=== PATIENT | female | born 1980 | race African-American/Black ===

== ENCOUNTER 2022-10-18 13:11 | Emergency (ER) | payer MEDICAID, SELFPAY ==
[2022-10-18 13:29] VITALS: BP 157/93; PULSE 99; RESP 18; TEMP 36.6; O2SAT 98; BMI 49.9
--- NOTE | 2022-10-18 13:30 | ED.GENADULT ---
HPI - General Adult General Chief complaint: Wound/Laceration Stated complaint: Suture Removal Etc Time Seen by Provider: 10/18/22 14:10 Source: patient and RN notes reviewed Mode of arrival: ambulatory Limitations: no limitations History of Present Illness HPI narrative: This is a 42-year-old female presenting to the emergency department for wound check after having multiple cosmetic surgeries and [place] on October 03. Patient had a bilateral brachioplasty, back liposuction, tummy tuck, and ?fat placed into her hips?. Patient was discharged on oral antibiotics which she has since completed. She states that she needs to have sutures removed and wound drain removed. Patient denies any fevers or chills. No other complaints or concerns at this time. MD complaint: Wound check Relieving factors: none Exacerbating factors: none Associated symptoms: denies other symptoms Treatments prior to arrival: none Related Data Previous Rx's Medication Instructions Recorded amoxicillin 875 mg-potassium 1 tab PO BID 7 days #14 tabs 10/18/22 clavulanate 125 mg tablet Allergies Allergy/AdvReac Type Severity Reaction Status Date / Time No Known Allergies Allergy Verified 10/18/22 13:27 Review of Systems Review of Systems: Constitutional: No Weight loss, No Fever, No Chills ENT/Mouth: No Ear Pain, No Nasal Congestion, No Sinus Pain, No Hoarseness, No sore throat, No Rhinorrhea, No Swallowing Difficulty Cardiovascular: No Chest Pain, No SOB Respiratory: No Cough, No Sputum, No Wheezing Gastrointestinal: No Nausea, No Vomiting, No Diarrhea, No Constipation, No Abdominal pain Genitourinary: No Dysuria, No Urinary Frequency, No Hematuria, No Urinary Incontinence/retention, No Urgency, No Flank Pain Musculoskeletal: No joint pain, No Myalgias, No Joint Swelling Skin: No Skin Lesions, No rash Neuro: No Weakness, No Numbness, No Paresthesias PMFSH Social History Social History Alcohol intake: former Smoked in Last 30 Days: No Use of substances other than those prescribed or required for medical reasons: Yes Substance Use Type: Marijuana Advance Directives: No Physical Exam ED Vital Signs: Vital Signs - 24 hr 10/18/22 13:29 Temperature 98 F Pulse Rate 99 Respiratory Rate 18 Blood Pressure 157/93 H Pulse Oximetry 98 Oxygen Delivery Method Room Air BMI result Body Mass Index 49.9 Const Other: General: Awake, alert, and oriented X3. No acute distress. HEENT: Normal inspection CVS: Normal heart rate and rhythm. Pulses normal. Respiratory: No respiratory distress Skin: Bilateral arms with extensive healing surgical scars, left axilla with slight wound dehiscence with wound drain placed, yellow/green drainage expressed. No surrounding fluctuance or erythema noted. Right arm with large surgical scar extending from axilla to right AC. Full range of motion of bilateral arms and elbows. Well-healed surgical incision with 1 suture placed to bilateral chest inferior to bilateral breasts. Bialteral posterior thighs with well healed surgical incision with suture placed. 1cm open wound with drain placed to the gluteal cleft, no fluctance, No active drainage or discharge. 3 Well healed surgical incision with sutures placed to back. Extremities: Normal to inspection. Neuro: Oriented X 3. No motor deficit. No sensory deficit. Course Course Course Narrative: This is an RME: Additional HPI, ROS, PE not included below will be deferred to primary provider. Patient is a 42-year-old female presenting for suture removal as well as suture placement after having liposuction in [place] on 10/03. States she does not have a surgeon here to follow up with. Reports pain is as to be expected. Denies any fevers. States BP has been mildly elevated but was told to expect that. Ok to go to [facility] for evaluation and potention suture removal. Medical Decision Making Medical Decision Making [facility] Narrative: 42-year-old female presenting to the emergency department for wound check and suture removal status post multiple cosmetic surgeries performed in [place] in October 03. Suture removal performed on sutures below bilateral breasts, 3 on back, and to on posterior thighs. No wound dehiscence or drainage from these areas. Left arm with wound dehiscence and drainage noted from the axilla, concern for underlying infection, no surrounding erythema or edema. No warmth or fevers. Discussed case with surgery for outpatient follow-up given patient's surgery was performed in [place] however we do not offer cosmetic surgery followups in this hospital. Patient given good wound care instructions, discharged on antibiotics, educated the importance of keeping close eye on these wounds. Patient understands and agrees with plan. Differential Diagnosis Differential Diagnoses: The differential diagnosis associated with the presentation includes Cellulitis, wound dehiscence, seroma Discharge Plan Discharge Clinical Impression: Visit for suture removal, Visit for wound check Patient Disposition: Home, Self-Care Instructions: Stitches Removal (ED) Additional Instructions: Please continue following all postoperative care provided by your surgeon. It is advised to follow-up with Plastic surgery for further treatment and follow-up. Call to make an appointment. Take prescribed antibiotic as directed. Finish the entire course. Watch for any worsening signs of infection including but not limited to, fevers, increased drainage. [facility] [address] [place] [address],?[id number] ?[phone] Prescriptions: New amoxicillin-pot clavulanate 875-125 mg tablet 1 tab PO BID 7 Days Qty: 14 0RF Referrals: [facility] Wound Care Management [Provider Group] (plastic surgery in [place]) Interventions: ED Discharge Assessment Last Done: 10/18/22 17:09 Discharge Date/Time: 10/18/22 17:10
--- NOTE | 2022-10-18 14:36 | PC.NURSE ---
pt reports to [facility] for suture removal post liposuction surgery in [place]. Pt also reports that they need a drain removed from their lower back and a suture to be placed. Arm lift incision on left arm appears open in area under axilla.
== END 2022-10-18 17:10 | disposition home or self-care (01) ==
PROVIDERS: Emergency Provider Emergency Medicine; PCP Internal Medicine
DX: Z48.02 Encounter for removal of sutures (principal); Z48.00 Encounter for change or removal of nonsurgical wound dressing
CPT/HCPCS: 99283

== ENCOUNTER 2022-11-03 08:02 | Outpatient (RCR) | payer MEDICAID, SELFPAY | END 2022-12-16 10:33 | disposition home or self-care (01) | LOC: HO.WCC 08:02 | PROVIDERS: PCP Internal Medicine; Visit Provider Surgery | DX: T81.31XD Disruption of external operation (surgical) wound, not elsewhere classified, subsequent encounter (principal); T14.8XXD Other injury of unspecified body region, subsequent encounter; Z79.01 Long term (current) use of anticoagulants; Z79.899 Other long term (current) drug therapy | CPT/HCPCS: 11042; 99212 ==

== ENCOUNTER 2023-11-08 09:01 | Outpatient (REF) | payer OTHER, SELFPAY ==
[2023-11-08 11:01] LABS: MANUAL DIFF FLAG NO
[2023-11-08 12:20] LABS: Basophils Absolute Auto 0.1 X10*3/uL (0.0-0.2); Basophils Percent Auto 0.9 % (0-2); Eosinophils Absolute Auto 0.3 X10*3/uL (0.0-0.4); Eosinophils Percent Auto 5.2 % (0-4); Hematocrit 33.9 % (37.0-47.0); Hemoglobin 9.8 g/dl (12.0-16.0); Imm Gran Abs Auto 0.01 X10*3/uL (0.00-0.03); Imm Gran Pct Auto 0.2 % (0.0-0.4); Lymphocytes Absolute Auto 1.3 X10*3/uL (1.2-4.9); Lymphocytes Percent Auto 22.6 % (20-40); Mean Corpuscular HGB Conc 28.9 g/dl (31.0-35.0); Mean Corpuscular Hemoglobin 21.1 pg (27.0-33.0); Mean Corpuscular Volume 72.9 fL (80.0-98.0); Mean Platelet Volume 9.2 fL (9.4-12.3); Monocytes Absolute Auto 0.2 X10*3/uL (0.1-1.2); Neutrophils Absolute Auto 3.9 x10*3/uL (2.0-8.3); Neutrophils Percent Auto 68.1 % (45-73); Platelet Count 486 X10*3/uL (160-400); Red Blood Count 4.65 X10*6/uL (4.20-5.50); Red Cell Distribution Width 19.9 % (11.0-16.0); White Blood Count 5.8 X10*3/uL (4.8-10.8)
[2023-11-08 12:58] LABS: Alanine Aminotransferase 6 U/L (0-31); Albumin Level 3.6 g/dL (3.5-5.0); Alkaline Phosphatase 104 U/L (39-117); Anion Gap 14 (12-20); Aspartate Amino Transferase 10 U/L (5-31); Bilirubin Total 0.4 mg/dL (0.0-1.0); Blood Urea Nitrogen 10 mg/dL (9-16); Calcium 9.6 mg/dL (8.4-10.2); Carbon Dioxide 24 mmol/L (22-29); Chloride 107 mmol/L (96-108); Estimated Glomerular Filt Rate > 60; Glucose Random 86 mg/dL (60-115); Potassium 3.8 mmol/L (3.3-5.1); Sodium 141 mmol/L (135-145); Total Protein 7.5 g/dL (6.5-8.0)
[2023-11-10 13:59] LABS: Transglutaminase Ab IgG <1.0 U/mL; Transglutaminase IgA <1.0 U/mL
== END 2023-11-08 09:02 | disposition home or self-care (01) ==
LOC: HO.LAB 09:01
PROVIDERS: PCP Internal Medicine; Visit Provider Nurse Practitioner
DX: R10.10 Upper abdominal pain, unspecified (principal); R68.81 Early satiety; Z91.09 Other allergy status, other than to drugs and biological substances
CPT/HCPCS: 36415; 80053; 85025; 86003; 86364

== ENCOUNTER 2023-11-08 09:01 | Outpatient (AMB) | payer OTHER, SELFPAY ==
--- NOTE | 2023-11-08 09:09 | A.OFFVIS_ITS ---
Vital Signs 3 11/08/23 09:11 Height 5 ft 5 in Weight 268 lb 15.423 oz BMI 44.8 BP 115/57 L Blood Pressure Location Lt brachial Position Sitting Pulse 73 Intake Visit Reasons: Abdominal pain Intake Note: Allie presents in the office as a new patient for abdominal pains. CC: She states that she has pains in her stomach. She was in the ED last year. She states that she has times where she is starving or she is very full - there is no inbetween. She does not get the urge to have a BM she just gets nausea and this has been ever since she her her c section. She deals with constipation - When there is a BM it is right at her rectum - all the time. She denies any blood but she does get mucus when she has a BM. She states that most of the time is is hard stools but not always the case. Reception Specialist Required: No Allergies pollen extracts Allergy (Unknown, Verified 11/08/23 09:12) Unknown ragweed pollen Allergy (Unknown, Verified 11/08/23 09:12) Unknown tree and shrub pollen Allergy (Unknown, Verified 11/08/23 09:12) Unknown vancomycin Adverse Reaction (Unknown, Verified 11/08/23 09:12) Headache HPI HPI Abdominal pain: Details: 43-year-old female here for initial evaluation of abdominal pain. She is referred by [facility] in [place]. 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 It expanded and she had multiple I&D's and then she developed a severe infection that requited IV abx. After this her stomach was rumbling all the time' and she had trouble eating. She then had sepsis. This was in 10/2022 and labor Day 2022 emergency surgery at [facility]. She vacillates between being very hungry or very full. She has had CIC since her c section. She will have bad cramping and nausea when she needs to move her bowels, she does not have the rectal urge. She lost weight with the tummy tuck and then she was briefly on Ozempic but this really worsened the sx. FHX of stomach cancer paternal aunt, she is allergic to avocados, bananas, She has trouble with mouth itching with broccoli. No formal allergy food testing. FHX maternal grandmother sarcoid, stoke, HTN, cholesterol. diabetes mother side extended. We will start with food allergy testing and general blood testing. ROV 2 weeks. to sofia lisa [facility] Medical History DVT (deep vein thrombosis) in Pulmonary embolus Surgical History Hx of colonoscopy History of esophagogastroduodenoscopy (EGD) History of section S/P brachioplasty H/O abdominoplasty H/O meniscectomy of right knee Family History Maternal Grandfather Cardiomyopathy Malignant neoplasm of lung Son Pherf-Sfjiejfid-Lkatp (WPW) pattern Father FH: prostate cancer Paternal Aunt Malignant tumor of breast Brother Schizophrenia Social History Household Members: Children Alcohol intake: former Patient Tobacco Use Status: Never used Tobacco Substance Use Type: Marijuana Review of Systems Const Denies fatigue, Denies fever(s), Denies night sweats, Denies poor appetite and Reports weight loss Eyes Details: glasses Reports requires corrective lenses ENT Reports Normal hearing present, Denies dental pain, Denies dysphagia, Denies hearing loss, Denies mouth pain, Denies odynophagia, Denies throat swelling, Denies tongue swelling and Reports other (Dentition adequate) Card Reports no additional complaints Resp Reports no additional complaints GI Details: Reports abdominal pain, Denies melena, Reports bloating, Denies hematochezia, Reports constipation, Denies GI cramping, Denies dysphagia, Denies excessive flatus, Reports early satiety, Denies heartburn, Denies diarrhea, Denies nausea, Denies odynophagia, Denies vomiting and Denies hematemesis Musc Details: Knee pain Reports arthralgias and Reports joint swelling Skin/Breast Denies pruritus, Denies lesions, Denies rash and Denies jaundice Neuro Reports Normal hearing present and Denies Abnormal speech present Endo Denies fatigue Aller/Immun Denies throat swelling and Denies tongue swelling Physical Exam Vital Signs: Last Vital Signs Pulse 73 11/08/23 09:11 BP 115/57 L 11/08/23 09:11 BMI result Body Mass Index 44.8 Const General: cooperative, no acute distress, well developed and well groomed Nutritional Appearance: well nourished and obese morbidly obese Orientation/consciousness: oriented to person, oriented to place and oriented to time Limitations: No language barrier HEENT Head: Yes normocephalic and Yes atraumatic Eyes General: appearance normal, both eyes and all related structures Pupils: Equal, round and reactive pupils present Neck Neck: Yes normal visual inspection and Yes no lymphadenopathy Thyroid: Thyroid normal Resp Effort & Inspection: normal respiratory effort and able to speak in complete sentences Auscultation: clear to auscultation bilaterally Cardio Rate: regular rate Rhythm: regular rhythm Heart sounds: Normal, physiologic split S2 sound present Peripheral pulses: radial pulses present and posterior tibial pulses present GI Inspection: Yes distended, No Abdominal panniculus present, Yes obesity, Yes scar and Yes striae Palpation (GI): Soft to palpation, nontender, no guarding, not rigid and No hepatosplenomegaly present Percussion: Yes normal to percussion Auscultation: normal bowel sounds Rectal Exam - Female: deferred Abdomen image: 2 1. surgical scars 2. Skin General skin exam: no rashes or lesions noted, turgor normal, skin not dry, no jaundice, No spider nevi and no striae Rashes: no rashes Nails: normal Neuro General: oriented to person, oriented to place and oriented to time Cranial nerves: Yes Equal, round and reactive pupils present and Yes Normal hearing present Speech: No Abnormal speech present Extrem Other: knee brace General: Yes normal to inspection, No clubbing, No cyanosis and No edema Shoulder/upper arm images: 2 1. surgical scars 2. Psych Appearance: grossly normal and well kempt Mental Status: mental status grossly normal Speech and movement: Normal speech and movement present Affect: normal affect Attitude: cooperative Thought process: Normal thought process present and not confabulating Thought content: Normal thought content present Insight: Good insight present (Psych) Judgement: Good judgement present (Psych) Assessment & Plan Assessment & Plan (1) Upper abdominal pain: Code(s): R10.10 - Upper abdominal pain, unspecified Category: Medical (2) Early satiety: Code(s): R68.81 - Early satiety Category: Medical Plan Onset last summer she had a tummy tuck and a seroma. It expanded and she had multiple I&D's and then she developed a severe infection that requited IV abx. After this her stomach was rumbling all the time' and she had trouble eating. She then had sepsis. This was in 10/2022 and labor Day 2022 emergency surgery at [facility]. She vacillates between being very hungry or very full. She has had CIC since her c section. She will have bad cramping and nausea when she needs to move her bowels, she does not have the rectal urge. She lost weight with the tummy tuck and then she was briefly on Ozempic but this really worsened the sx. FHX of stomach cancer paternal aunt, she is allergic to avocados, bananas, She has trouble with mouth itching with broccoli. No formal allergy food testing. FHX maternal grandmother sarcoid, stoke, HTN, cholesterol. diabetes mother side extended. We will start with food allergy testing and general blood testing. ROV 2 weeks. to sofia al latha Orders: Orders 2 Rast Allergen Today R10.10 - Upper abdominal pain, unspecified, R68.81 - Early satiety US abdomen complete Today R10.10 - Upper abdominal pain, unspecified, R68.81 - Early satiety Complete Blood Count Auto Diff Today R10.10 - Upper abdominal pain, unspecified, R68.81 - Early satiety Comprehensive Met. Panel Today R10.10 - Upper abdominal pain, unspecified, R68.81 - Early satiety H Pylori Breath Test Today R10.10 - Upper abdominal pain, unspecified, R68.81 - Early satiety Transglutaminase IgA Today R10.10 - Upper abdominal pain, unspecified, R68.81 - Early satiety Transglutaminase Ab IgG Today R10.10 - Upper abdominal pain, unspecified, R68.81 - Early satiety NM gastric emptying study Today R10.10 - Upper abdominal pain, unspecified, R68.81 - Early satiety Medications: New 2 sennosides (Senna Laxative) 17.2 mg (2 x 8.6 mg) PO BEDTIME 60 tabs 3RF Coding Level of Care Code New Pt Level 3 (56076) Diagnoses Upper abdominal pain R10.10 Early satiety R68.81
[2023-11-08 09:11] VITALS: BP 115/57; PULSE 73; BMI 44.8
== END 2023-11-08 10:15 | disposition home or self-care (01) ==
PROVIDERS: PCP Internal Medicine; Visit Provider Nurse Practitioner
DX: R10.10 Upper abdominal pain, unspecified (principal); R68.81 Early satiety
CPT/HCPCS: 99203

== ENCOUNTER 2023-11-28 07:59 | Outpatient (REF) | payer OTHER, SELFPAY ==
--- NOTE | ~2023-11-28 | US_ITS ---
EXAMINATION: US ABDOMEN COMPLETE CLINICAL INFORMATION: Upper abdominal pain, unspecified. COMPARISON: None available. TECHNIQUE: Real-time imaging of the abdominal viscera. Limited visualization due to bowel gas. FINDINGS: PANCREAS: Limited visualization of pancreatic tail and head. Imaged portion of pancreatic body is unremarkable. ABDOMINAL AORTA: Within normal limits in caliber. INFERIOR VENA CAVA: Visualized portions are normal. LIVER: Borderline hepatomegaly, 15.1 cm. Right hepatic parenchymal heterogeneity and echogenicity could be associated with hepatocellular disease/hepatic steatosis and substantially limits visualization. Correlation with liver function tests and clinical exam recommended to determine further management. A 0.7 cm right hepatic echogenic lesion, possibly a hemangioma. GALLBLADDER: No gallstones. No gallbladder wall thickening. COMMON BILE DUCT: Normal in caliber measuring 0.3 cm in diameter. RIGHT KIDNEY: No hydronephrosis. No renal calculi. Limited visualization. The kidney measures 10.9 cm in maximum dimension. LEFT KIDNEY: No hydronephrosis. No renal calculi. Limited visualization. The kidney measures 10.2 cm in maximum dimension. SPLEEN: Normal. The spleen measures 9.9 cm in maximum dimension. FREE FLUID: None. US/US abdomen complete IMPRESSION: 1. Borderline hepatomegaly, 15.1 cm. Right hepatic parenchymal heterogeneity and echogenicity could be associated with hepatocellular disease/hepatic steatosis and substantially limits visualization. Correlation with liver function tests and clinical exam recommended to determine further management. 2. A 0.7 cm right hepatic echogenic lesion, possibly a hemangioma.
== END 2023-11-28 08:00 | disposition home or self-care (01) ==
LOC: HO.US 07:59
PROVIDERS: PCP Internal Medicine; Visit Provider Nurse Practitioner
DX: R10.10 Upper abdominal pain, unspecified (principal); R68.81 Early satiety
CPT/HCPCS: 76700

== ENCOUNTER 2023-12-27 15:57 | Outpatient (AMB) | payer OTHER, MEDICAID, SELFPAY ==
--- NOTE | 2023-12-27 15:05 | A.OFFVIS_ITS ---
Intake Visit Reasons: 2 week follow up r/s 11/22 Intake Note: Allie presents in the office as a 2 week follow up. CC: Director Of Patient Care Required: No Allergies pollen extracts Allergy (Unknown, Verified 12/27/23 15:13) Unknown ragweed pollen Allergy (Unknown, Verified 12/27/23 15:13) Unknown tree and shrub pollen Allergy (Unknown, Verified 12/27/23 15:13) Unknown vancomycin Adverse Reaction (Unknown, Verified 12/27/23 15:13) Headache PFSH Medical History DVT (deep vein thrombosis) in Pulmonary embolus Surgical History Hx of colonoscopy History of esophagogastroduodenoscopy (EGD) History of section S/P brachioplasty H/O abdominoplasty H/O meniscectomy of right knee Family History Maternal Grandfather Cardiomyopathy Malignant neoplasm of lung Son Quvhh-Ndyjvwzuy-Pkggp (WPW) pattern Father FH: prostate cancer Paternal Aunt Malignant tumor of breast Brother Schizophrenia Social History Household Members: Children Alcohol intake: former Patient Tobacco Use Status: Never used Tobacco Substance Use Type: Marijuana Coding
--- NOTE | 2023-12-27 16:08 | MHC.OFFVIS ---
Vital Signs 12/27/23 16:11 Height 5 ft 5 in Weight 283 lb BMI 47.1 BP 114/59 L Blood Pressure Location Lt brachial Position Sitting Pulse 85 Intake Visit Reasons: 2 week follow up r/s 11/22 Intake Note: Patient follow up for early satiety Patient cc: early satiety or always hungry, soft/sticky BM and same symptoms as the last visit. Recyclable Materials Collector Required: No Accompanied by: Self / Same As Patient Allergies pollen extracts Allergy (Unknown, Verified 12/27/23 16:07) Unknown ragweed pollen Allergy (Unknown, Verified 12/27/23 16:07) Unknown tree and shrub pollen Allergy (Unknown, Verified 12/27/23 16:07) Unknown vancomycin Adverse Reaction (Unknown, Verified 12/27/23 16:07) Headache HPI HPI 2 week follow up r/s 11/22: Details: Assessment & Plan (1) Upper abdominal pain: Code(s): R10.10 - Upper abdominal pain, unspecified Category: Medical (2) Early satiety: Code(s): R68.81 - Early satiety Category: Medical Plan Onset last summer she had a tummy tuck and a seroma. It expanded and she had multiple I&D's and then she developed a severe infection that requited IV abx. After this her stomach was rumbling all the time' and she had trouble eating. She then had sepsis. This was in 10/2022 and labor Day 2022 emergency surgery at [facility]. She vacillates between being very hungry or very full. She has had CIC since her c section. She will have bad cramping and nausea when she needs to move her bowels, she does not have the rectal urge. She lost weight with the tummy tuck and then she was briefly on Ozempic but this really worsened the sx. FHX of stomach cancer paternal aunt, she is allergic to avocados, bananas, She has trouble with mouth itching with broccoli. No formal allergy food testing. FHX maternal grandmother sarcoid, stoke, HTN, cholesterol. diabetes mother side extended. We will start with food allergy testing and general blood testing. ROV 2 weeks. to ev al senna Orders: Orders Rast Allergen Today R10.10 - Upper abdominal pain, unspecified, R68.81 - Early satiety US abdomen complete Today R10.10 - Upper abdominal pain, unspecified, R68.81 - Early satiety Complete Blood Count Auto Diff Today R10.10 - Upper abdominal pain, unspecified, R68.81 - Early satiety Comprehensive Met. Panel Today R10.10 - Upper abdominal pain, unspecified, R68.81 - Early satiety H Pylori Breath Test Today R10.10 - Upper abdominal pain, unspecified, R68.81 - Early satiety Transglutaminase IgA Today R10.10 - Upper abdominal pain, unspecified, R68.81 - Early satiety Transglutaminase Ab IgG Today R10.10 - Upper abdominal pain, unspecified, R68.81 - Early satiety NM gastric emptying study Today R10.10 - Upper abdominal pain, unspecified, R68.81 - Early satiety Medications: New sennosides (Senna Laxative) 17.2 mg (2 x 8.6 mg) PO BEDTIME 60 tabs 3RF LABS; Laboratory Tests 11/08/23 10:58 WBC 5.8 Hgb 9.8 L Hct 33.9 L MCV 72.9 L MCH 21.1 L MCHC 28.9 L Plt Count 486 H Estimated GFR > 60 Total Bilirubin 0.4 AST 10 ALT 6 Tiss Transglutamin IgG <1.0 Tiss Transglutamin IgA <1.0 RAST panel shows that she has allergies to peanuts, wheat, cow's milk, soy beans, shrimp, scallops, sesame seeds, Yanely nut, and all almond GES US ABD 12/04/23 FINDINGS: PANCREAS: Limited visualization of pancreatic tail and head. Imaged portion of pancreatic body is unremarkable. ABDOMINAL AORTA: Within normal limits in caliber. INFERIOR VENA CAVA: Visualized portions are normal. LIVER: Borderline hepatomegaly, 15.1 cm. Right hepatic parenchymal heterogeneity and echogenicity could be associated with hepatocellular disease/hepatic steatosis and substantially limits visualization. Correlation with liver function tests and clinical exam recommended to determine further management. A 0.7 cm right hepatic echogenic lesion, possibly a hemangioma. GALLBLADDER: No gallstones. No gallbladder wall thickening. COMMON BILE DUCT: Normal in caliber measuring 0.3 cm in diameter. RIGHT KIDNEY: No hydronephrosis. No renal calculi. Limited visualization. The kidney measures 10.9 cm in maximum dimension. LEFT KIDNEY: No hydronephrosis. No renal calculi. Limited visualization. The kidney measures 10.2 cm in maximum dimension. SPLEEN: Normal. The spleen measures 9.9 cm in maximum dimension. FREE FLUID: None. US/US abdomen complete IMPRESSION: 1. Borderline hepatomegaly, 15.1 cm. Right hepatic parenchymal heterogeneity and echogenicity could be associated with hepatocellular disease/hepatic steatosis and substantially limits visualization. Correlation with liver function tests and clinical exam recommended to determine further management. 2. A 0.7 cm right hepatic echogenic lesion, possibly a hemangioma. TODAYS VISIT I give her the extensive list of food allergies. Now I think she needs to work on eliminating these from her diet before we consider any further medication interventions or testing. She understands and will work on this and see how she is doing in a few weeks.RAST panel shows that she has allergies to peanuts, wheat, cow's milk, soy beans, shrimp, scallops, sesame seeds, Yanely nut, and almond. ROV 6 weeks. [facility] Medical History DVT (deep vein thrombosis) in Pulmonary embolus Surgical History Hx of colonoscopy History of esophagogastroduodenoscopy (EGD) History of section S/P brachioplasty H/O abdominoplasty H/O meniscectomy of right knee Family History Maternal Grandfather Cardiomyopathy Malignant neoplasm of lung Son Pidiv-Hnovgujqz-Vgjmi (WPW) pattern Father FH: prostate cancer Paternal Aunt Malignant tumor of breast Brother Schizophrenia Social History Household Members: Children Alcohol intake: former Patient Tobacco Use Status: Never used Tobacco Substance Use Type: Marijuana Review of Systems Const Denies fatigue, Denies fever(s), Denies night sweats, Denies poor appetite and Denies weight loss Eyes Details: glasses Reports requires corrective lenses ENT Reports Normal hearing present, Denies dental pain, Denies dysphagia, Denies hearing loss, Denies mouth pain, Denies odynophagia, Denies throat swelling, Denies tongue swelling and Reports other (Dentition adequate) Card Reports no additional complaints Resp Reports no additional complaints GI Details: Reports abdominal pain, Denies melena, Reports bloating, Denies hematochezia, Denies constipation, Denies GI cramping, Denies dysphagia, Denies excessive flatus, Denies early satiety, Denies heartburn, Denies diarrhea, Denies nausea, Denies odynophagia, Denies vomiting and Denies hematemesis Skin/Breast Denies pruritus, Denies lesions, Denies rash and Denies jaundice Neuro Reports Normal hearing present and Denies Abnormal speech present Endo Denies fatigue Aller/Immun Denies throat swelling and Denies tongue swelling Physical Exam Vital Signs: Last Vital Signs Pulse 85 12/27/23 16:11 BP 114/59 L 12/27/23 16:11 BMI result Body Mass Index 47.1 Const General: cooperative, no acute distress, well developed and well groomed Nutritional Appearance: well nourished and obese morbidly obese Orientation/consciousness: oriented to person, oriented to place and oriented to time Limitations: No language barrier HEENT Head: Yes normocephalic and Yes atraumatic Eyes General: appearance normal, both eyes and all related structures Pupils: Equal, round and reactive pupils present Neck Neck: Yes normal visual inspection and Yes no lymphadenopathy Thyroid: Thyroid normal Resp Effort & Inspection: normal respiratory effort and able to speak in complete sentences Auscultation: clear to auscultation bilaterally Cardio Rate: regular rate Rhythm: regular rhythm Heart sounds: Normal, physiologic split S2 sound present Peripheral pulses: radial pulses present and posterior tibial pulses present GI Inspection: No distended, Yes Abdominal panniculus present and Yes obesity Palpation (GI): Soft to palpation, nontender, no guarding, not rigid and No hepatosplenomegaly present Percussion: Yes normal to percussion Auscultation: normal bowel sounds Rectal Exam - Female: deferred Skin General skin exam: no rashes or lesions noted, turgor normal, skin not dry, no jaundice, No spider nevi and no striae Rashes: no rashes Nails: normal Neuro General: oriented to person, oriented to place and oriented to time Cranial nerves: Yes Equal, round and reactive pupils present and Yes Normal hearing present Speech: No Abnormal speech present Extrem General: Yes normal to inspection, No clubbing, No cyanosis and No edema Psych Appearance: grossly normal and well kempt Mental Status: mental status grossly normal Speech and movement: Normal speech and movement present Affect: normal affect Attitude: cooperative Thought process: Normal thought process present and not confabulating Thought content: Normal thought content present Insight: Good insight present (Psych) Judgement: Good judgement present (Psych) Assessment & Plan Assessment & Plan (1) Multiple food allergies: Comment: peanuts, wheat, cow's milk, soy beans, shrimp, scallops, sesame seeds, Yanely nut, and almond Code(s): Z91.018 - Allergy to other foods Category: Medical (2) Upper abdominal pain: Code(s): R10.10 - Upper abdominal pain, unspecified Category: Medical Plan I give her the extensive list of food allergies. Now I think she needs to work on eliminating these from her diet before we consider any further medication interventions or testing. She understands and will work on this and see how she is doing in a few weeks.RAST panel shows that she has allergies to peanuts, wheat, cow's milk, soy beans, shrimp, scallops, sesame seeds, Yanely nut, and almond. ROV 6 weeks. Medications: On Hold sennosides (Senna Laxative) Hold Comment: Doctor's Order 17.2 mg (2 x 8.6 mg) PO BEDTIME 60 tabs 3RF Coding Level of Care Code Est Pt Level 3 (47829) Diagnoses Multiple food allergies Z91.018 Upper abdominal pain R10.10
[2023-12-27 16:11] VITALS: BP 114/59; PULSE 85; BMI 47.1
== END 2023-12-27 16:44 | disposition home or self-care (01) ==
PROVIDERS: PCP Internal Medicine; Visit Provider Nurse Practitioner
DX: Z91.018 Allergy to other foods (principal); R10.10 Upper abdominal pain, unspecified
CPT/HCPCS: 99213

== ENCOUNTER → 2023-12-27 15:57 | Outpatient (BNVA) | payer OTHER, SELFPAY | PROVIDERS: PCP Internal Medicine; Visit Provider Nurse Practitioner ==

== ENCOUNTER → 2024-01-31 07:32 | Outpatient (REF) | payer OTHER, MEDICAID, SELFPAY ==
--- NOTE | ~2024-01-31 | NM_ITS ---
EXAMINATION: RADIONUCLIDE SOLID FOOD GASTRIC EMPTYING 4-HOUR STUDY CLINICAL INFORMATION: Upper abdominal pain, unspecified. COMPARISON: No previous gastric emptying study is available for comparison. TECHNIQUE: A standard meal consisting of 4 oz of Egg Beaters brand tagged with 120 microcuries Tc-99m Sulfur Colloid, 8 oz water and 2 slices of toast with jelly was administered orally to the patient. Images were obtained using a dual head gamma camera in the anterior and posterior projections over of the stomach immediately post ingestion and at hourly intervals up to 3 hours post ingestion. Images were not obtained at 4 hours due to the minimal retention at 3 hours. The anterior and posterior counts at each time interval were averaged using the geometric mean and expressed as percentage of the immediate post ingestion counts. FINDINGS: There is good visualization of activity in the stomach immediately post ingestion. As the study progresses, there is good clearance of activity from the stomach and visualization of progressively increasing small bowel activity. By the end of the study, there is almost no retention noted in the stomach. Retention in the stomach at each time interval was: 1 hour 58% (normal 37%-90%) 2 hours 22% (normal 30%-60%) 3 hours 0% 4 hours (Not Obtained) (normal 0%-10%) NM/NM gastric emptying study IMPRESSION: Normal solid food gastric emptying study. Gastric emptying study grading per JNMT Consensus Recommendations in 2008: https://tech.snmjournals.org/content/36/44 Grade 1 (mild retention): 11-20% at 4 hours Grade 2 (moderate retention): 21-35% at 4 hours Grade 3 (severe retention): 36-50% at 4 hours Grade 4 (very severe retention): >50% retention at 4 hours Electronically signed by: Jeffrey Murdock MD 02/08/2024 03:43 PM EDT
== END ==
LOC: HO.NUCMED 07:32
PROVIDERS: PCP Internal Medicine; Visit Provider Nurse Practitioner
DX: R10.10 Upper abdominal pain, unspecified (principal); R68.81 Early satiety
CPT/HCPCS: 78264; A9541

== ENCOUNTER 2024-02-09 16:33 | Outpatient (AMB) | payer OTHER, SELFPAY ==
--- NOTE | 2024-02-09 16:36 | A.OFFVIS_ITS ---
Vital Signs 02/09/24 16:38 Height 5 ft 5 in Weight 275 lb 9.245 oz BMI 45.9 BP 126/59 L Blood Pressure Location Rt brachial Position Sitting Pulse 92 Intake Visit Reasons: 6 weeks f/u Intake Note: Alile presents to in office follow up of abd pain. CC: Patient reports she is doing the same. Facility Supervisor Required: No Accompanied by: Self / Same As Patient Allergies pollen extracts Allergy (Unknown, Verified 02/09/24 16:44) Unknown ragweed pollen Allergy (Unknown, Verified 02/09/24 16:44) Unknown tree and shrub pollen Allergy (Unknown, Verified 02/09/24 16:44) Unknown vancomycin Adverse Reaction (Unknown, Verified 02/09/24 16:44) Headache HPI HPI 6 weeks f/u: Details: Assessment & Plan (1) Multiple food allergies: Comment: peanuts, wheat, cow's milk, soy beans, shrimp, scallops, sesame seeds, Yanely nut, and almond Code(s): Z91.018 - Allergy to other foods Category: Medical (2) Upper abdominal pain: Code(s): R10.10 - Upper abdominal pain, unspecified Category: Medical Plan I give her the extensive list of food allergies. Now I think she needs to work on eliminating these from her diet before we consider any further medication interventions or testing. She understands and will work on this and see how she is doing in a few weeks.RAST panel shows that she has allergies to peanuts, wheat, cow's milk, soy beans, shrimp, scallops, sesame seeds, Yanely nut, and almond. ROV 6 weeks. Medications: On Hold sennosides (Senna Laxative) Hold Comment: Doctor's Order 17.2 mg (2 x 8.6 mg) PO BEDTIME 60 tabs 3RF GES IMPRESSION: Normal solid food gastric emptying study. TODAY'S VISIT SHe finds it VERY difficult to find things to eat. I'm not surprised, since there are many types. We discuss referral to an inspector metal fabricating, and we will do this. While avoidance of allergies is advised, I don't know if there is an desensitization therapy. There is a maub used for this that we could consider. She will get hungry very quickly and then if she does not eat she will become nauseated. Her loose stools and cramping has improved. her early satiety is still a problem. Will start famotidine and refer to inspector metal fabricating. ROV 6 weeks. PFSH Medical History DVT (deep vein thrombosis) in Pulmonary embolus Surgical History Hx of colonoscopy History of esophagogastroduodenoscopy (EGD) History of section S/P brachioplasty H/O abdominoplasty H/O meniscectomy of right knee Family History Maternal Grandfather Cardiomyopathy Malignant neoplasm of lung Son Loxbb-Hkxmirrhi-Kdgzq (WPW) pattern Father FH: prostate cancer Paternal Aunt Malignant tumor of breast Brother Schizophrenia Social History Household Members: Children Alcohol intake: former Patient Tobacco Use Status: Never used Tobacco Substance Use Type: Marijuana Review of Systems Const Denies fatigue, Denies fever(s), Denies night sweats, Reports poor appetite and Denies weight loss Eyes Details: glasses Reports requires corrective lenses ENT Reports Normal hearing present, Denies dental pain, Denies dysphagia, Denies hearing loss, Denies mouth pain, Denies odynophagia, Denies throat swelling, Denies tongue swelling and Reports other (Dentition adequate) Card Reports chest pain Resp Reports no additional complaints GI Details: Denies abdominal pain, Denies melena, Denies bloating, Denies hematochezia, Denies constipation, Denies GI cramping, Denies dysphagia, Denies excessive flatus, Reports early satiety, Denies heartburn, Denies diarrhea, Reports nausea, Denies odynophagia, Denies vomiting and Denies hematemesis Musc Reports muscle cramps and Reports radiating pain into limb Skin/Breast Denies pruritus, Denies lesions, Denies rash and Denies jaundice Neuro Reports Normal hearing present and Denies Abnormal speech present Endo Denies fatigue Aller/Immun Denies throat swelling and Denies tongue swelling Physical Exam Vital Signs: Last Vital Signs Pulse 92 02/09/24 16:38 BP 126/59 L 02/09/24 16:38 BMI result Body Mass Index 45.9 Const General: cooperative, no acute distress, well developed and well groomed Nutritional Appearance: well nourished and obese morbidly obese Orientation/consciousness: oriented to person, oriented to place and oriented to time Limitations: No language barrier HEENT Head: Yes normocephalic and Yes atraumatic Eyes General: appearance normal, both eyes and all related structures Pupils: Equal, round and reactive pupils present Neck Neck: Yes normal visual inspection and Yes no lymphadenopathy Thyroid: Thyroid normal Resp Effort & Inspection: normal respiratory effort and able to speak in complete sentences Auscultation: clear to auscultation bilaterally Cardio Rate: regular rate Rhythm: regular rhythm Heart sounds: Normal, physiologic split S2 sound present Peripheral pulses: radial pulses present and posterior tibial pulses present GI Inspection: No distended, Yes Abdominal panniculus present and Yes obesity Palpation (GI): Soft to palpation, nontender, no guarding, not rigid and No hepatosplenomegaly present Percussion: Yes normal to percussion Auscultation: normal bowel sounds Rectal Exam - Female: deferred Skin General skin exam: no rashes or lesions noted, turgor normal, skin not dry, no jaundice, No spider nevi and no striae Rashes: no rashes Nails: normal Neuro General: oriented to person, oriented to place and oriented to time Cranial nerves: Yes Equal, round and reactive pupils present and Yes Normal hearing present Speech: No Abnormal speech present Extrem General: Yes normal to inspection, No clubbing, No cyanosis and No edema Psych Appearance: grossly normal and well kempt Mental Status: mental status grossly normal Speech and movement: Normal speech and movement present Affect: normal affect Attitude: cooperative Thought process: Normal thought process present and not confabulating Thought content: Normal thought content present Insight: Fair insight present (Psych) Judgement: Fair judgement present (Psych) Assessment & Plan Assessment & Plan (1) Multiple food allergies: Comment: peanuts, wheat, cow's milk, soy beans, shrimp, scallops, sesame seeds, Yanely nut, and almond Code(s): Elana91.018 - Allergy to other foods Category: Medical (2) Upper abdominal pain: Code(s): R10.10 - Upper abdominal pain, unspecified Category: Medical (3) Chest pain: Code(s): R07.9 - Chest pain, unspecified Category: Medical Plan SHe finds it VERY difficult to find things to eat. I'm not surprised, since there are many types. We discuss referral to an inspector metal fabricating, and we will do this. While avoidance of allergies is advised, I don't know if there is an desensitization therapy. There is a maub used for this that we could consider. She will get hungry very quickly and then if she does not eat she will become nauseated. Her loose stools and cramping has improved. her early satiety is still a problem. Will start famotidine and refer to inspector metal fabricating. Because past issues with blood clots of the legs and pulmonary emboli she has and she has never had an evaluation of her cardiac status I am going to order an EKG to make sure there is no serious concerns and we should be considering cardiology referral. ROV 6 weeks. Orders: Orders ECG 12 lead EKG 02/09/24 I73.9 - Peripheral vascular disease, unspecified Referrals Allergy & Immunology Referral Z91.018 - Allergy to other foods Medications: New famotidine (Pepcid) 40 mg PO BEDTIME 30 tabs 6RF Z91.018 - Allergy to other foods Coding Level of Care Code Est Pt Level 3 (67482) Complex EM visit Add On G2211 Diagnoses Multiple food allergies Z91.018 Upper abdominal pain R10.10 Chest pain R07.9
[2024-02-09 16:38] VITALS: BP 126/59; PULSE 92; BMI 45.9
== END 2024-02-09 17:23 | disposition home or self-care (01) ==
LOC: HO.HGI 16:33
PROVIDERS: PCP Internal Medicine; Visit Provider Nurse Practitioner
DX: Z91.018 Allergy to other foods (principal); R10.10 Upper abdominal pain, unspecified; R07.9 Chest pain, unspecified
CPT/HCPCS: 99213

== ENCOUNTER → 2024-02-09 16:33 | Outpatient (BNVA) | payer OTHER, SELFPAY | PROVIDERS: PCP Internal Medicine; Visit Provider Nurse Practitioner ==